=== PATIENT | female | born 1990 | race African-American/Black ===

== ENCOUNTER 2019-05-04 17:52 | Emergency (ER) | payer MEDICAID ==
[~2019-05-04] VITALS: Ht 165.1 cm; Wt 117.9 kg
[2019-05-04 18:33] VITALS: BP 144/104
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
--- NOTE | 2019-05-04 19:14 | NUR ---
RPORT GIVEN TO CRYSTAL ZABALA FOR CHANGE OF SHIFT
[2019-05-04] MEDS ORDERED: IBUPROFEN 600 MG TAB PO ONE (19:30)
[2019-05-04 19:45] VITALS: BP 135/95
--- NOTE | 2019-05-04 19:46 | NUR ---
Patient discharged with v/s stable. Written and verbal after care instructions given and explained. Patient alert, oriented and verbalized understanding of instructions. Ambulatory with steady gait. All questions addressed prior to discharge. ID band removed. Patient advised to follow up with PMD. Rx of FLEXRIL, IBUPROFEN given. Patient educated on indication of medication including possible reaction and side effects. Opportunity to ask questions provided and answered.
== END 2019-05-04 19:45 | disposition home or self-care (01) ==
LOC: MED 17:52
DX: G89.29 Other chronic pain (principal); M79.604 Pain in right leg
CPT/HCPCS: 99283